=== PATIENT | female | born 1950 | race Caucasian/White ===

== ENCOUNTER 2024-06-09 21:06 | Inpatient (IN) | payer MEDICARE, SELFPAY ==
[2024-06-09] VITALS (8 sets, daily range): BP systolic 109–188; BP diastolic 70–129; BMI 28.5; BMI 28.1
[2024-06-09 13:02] LABS: % Basophils 0.3 % (0-2); % Eosinophils 2.6 % (0-6); % Monocytes 9.7 % (1.7-9.3); % Neutrophils 53.4 % (42.2-75.2); Absolute Eosinophils 0.1 10^3/uL (0-0.7); Absolute Lymphocytes 1.3 10^3/uL (1.2-3.4); Absolute Monocytes 0.4 10^3/uL (0.1-0.6); Hematocrit 41.9 % (37.0-47.0); Hemoglobin 14.2 g/dL (12.0-16.0); Mean Corp Hgb Conc. 33.9 g/dL (33.0-37.0); Mean Corpuscular Hgb 30.3 pg (27.0-31.0); Mean Corpuscular Volume 89.5 fL (81.0-99.0); Mean Platelet Volume 10.5 fL (7.4-10.4); Nucleated Red Blood Cells % 0 %; Platelet Count 148 10^3/uL (130-400); Red Blood Cell Count 4.68 10^6/uL (4.20-5.40); Red Cell Dist. Width 14.9 % (11.5-14.5); White Blood Cell Count 3.8 10^3/uL (4.8-10.8)
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
[2024-06-09 13:31] LABS: Blood Urea Nitrogen 17 mg/dl (7-17); Calcium 9.5 mg/dl (8.4-10.2); Carbon Dioxide 25 mmol/L (22-30); Chloride 104 mmol/L (98-107); Estimated Creatinine Clearance 51 ml/min; Glucose 105 mg/dl (70-99); Potassium 4.1 mmol/L (3.5-5.1); Sodium 139 mmol/L (135-145); eGFR 58.39
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
[2024-06-09 13:54] LABS: Albumin 3.8 g/dl (3.5-5.0); Alkaline Phosphatase 87 U/L (38-126); Total Protein 7.3 g/dl (6.3-8.2)
[2024-06-09 13:55] LABS: ALT (SGPT) 22 U/L (0-35); AST (SGOT) 66 U/L (14-36); Total Bilirubin 2.4 mg/dl (0.2-1.3)
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
[2024-06-09 20:06] LABS: Urine Albumin Trace (Neg - Trace); Urine Bilirubin Negative (Negative); Urine Character Very Cloudy (Clear); Urine Color Yellow; Urine Glucose Negative (Negative); Urine Ketone Negative (Negative); Urine Leukocyte 2+ (Negative); Urine Nitrite Positive (Negative); Urine Occult Blood 1+ (Negative); Urine Urobilinogen Negative (Neg - 1+); Urine pH 6.5 (5.0-9.0)
[2024-06-09 20:13] LABS: Amphetamines Negative (Negative); Barbiturates Negative (Negative); Benzodiazepines Negative (Negative); Buprenorphine Negative (Negative); Cocaine Negative (Negative); Marijuana Negative (Negative); Methadone Negative (Negative); Methamphetamines Negative (Negative); Opiates Negative (Negative); Phencyclidine Negative (Negative); Tricyclic Antidepressants Negative (Negative); Urine Bacteria Many (Negative); Urine White Cell >100 /HPF (0-5)
[2024-06-09 20:19] LABS: Magnesium 1.8 mg/dl (1.6-2.3)
[2024-06-09 20:49] LABS: TSH Reflex To Free T4 1.56 uIU/ml (0.47-4.68)
--- NOTE | 2024-06-09 21:00 | PTCARENOTE ---
Patient arrived from the ED via stretcher. Patient ambulated into the room with assistance. AAOx1, pleasantly confused. VSS, BP elevated. No c/o pain. Bed alarm in place, fall risk bracelet applied. Patient oriented to the room, call buitrago is within
reach.
[2024-06-09] MEDS: COZAAR 50 MG PO (21:25)
[2024-06-09] MEDS: FLUSH (NSS) 1 FLUSH IV (21:26)
[2024-06-10 06:00] VITALS: BMI 27.8
[2024-06-10 06:14] LABS: % Basophils 0.4 % (0-2); % Eosinophils 1.8 % (0-6); % Immature Granulocytes 0.2 % (0-0.5); % Lymphocytes 32.5 % (20.5-51.1); % Monocytes 10.9 % (1.7-9.3); % Neutrophils 54.2 % (42.2-75.2); Absolute Eosinophils 0.1 10^3/uL (0-0.7); Absolute Lymphocytes 1.5 10^3/uL (1.2-3.4); Absolute Monocytes 0.5 10^3/uL (0.1-0.6); Absolute Neutrophils 2.4 10^3/uL (1.4-6.5); Hematocrit 40.2 % (37.0-47.0); Hemoglobin 13.7 g/dL (12.0-16.0); Mean Corp Hgb Conc. 34.1 g/dL (33.0-37.0); Mean Corpuscular Hgb 30.1 pg (27.0-31.0); Mean Corpuscular Volume 88.4 fL (81.0-99.0); Nucleated Red Blood Cells % 0 %; Platelet Count 142 10^3/uL (130-400); Red Blood Cell Count 4.55 10^6/uL (4.20-5.40); Red Cell Dist. Width 14.8 % (11.5-14.5); White Blood Cell Count 4.5 10^3/uL (4.8-10.8)
[2024-06-10 06:47] LABS: ALT (SGPT) 22 U/L (0-35); AST (SGOT) 58 U/L (14-36); Albumin 3.5 g/dl (3.5-5.0); Alkaline Phosphatase 74 U/L (38-126); Blood Urea Nitrogen 17 mg/dl (7-17); Calcium 9.1 mg/dl (8.4-10.2); Carbon Dioxide 24 mmol/L (22-30); Chloride 107 mmol/L (98-107); Estimated Creatinine Clearance 56 ml/min; Glucose 91 mg/dl (70-99); HDL Cholesterol 61 mg/dl; LDL Cholesterol, Calculated 134 mg/dl; Potassium 4.1 mmol/L (3.5-5.1); Sodium 142 mmol/L (135-145); Total Bilirubin 2.3 mg/dl (0.2-1.3); Total Cholesterol 207 mg/dl (50-199); Total Protein 6.7 g/dl (6.3-8.2); Triglyceride 64 mg/dl (10-149); Very Low Density Lipoprotein 12 mg/dl (0-30); eGFR > 60.00
[2024-06-10 07:12] VITALS: BP 164/84
[2024-06-10] MEDS: HEPARIN 5000 UNITS SC (08:45)
--- NOTE | 2024-06-10 08:47 | CS.PSYCHR ---
Consult Summary - Psychiatry
-
74 yo female with history of ongoing confusion admitted on 06/09/2024 after an unwitnessed fall. Psychiatry consulted to determine if underlying psychiatric condition could be contributing to confusion/hallucinations. On evaluation, patient denies a
mental health history. I spoke to her Flakito who confirms this. He reports very high functioning baseline until about 2 years ago. He states that over the past two years, patient has become increasingly confused. The first deficits he
noticed were difficulty with math and reading comprehension. Over the past couple weeks he state she thinks the TV is talking to her directly and she responds, She has been seeing people in the room that she states are laughing at her/calling her
names. She has had episodes of significant agitation. He states he feels guilty for not getting her evaluation sooner. He is struggling and does not think he is able to continue caring for her. He brings up possibility of alf placement.
MSE- good eye contact. calm. pleasant but confused. knows her name and that she's in a hospital but cannot tell me which one. She reports 'good' mood. thought process is disorganized. She denies SI/HI. She denies hallucinations or ideas of reference
at this time. Poor insight.
TSH WNL; UDS negative; UA suspicious of infection vs contamination; B12 folate pending
06/09 CT head- progressive volume loss compared with previous exam notably in temporal lobes; small vessel ischemic disease
Past psych- denies
PMH- HTN, HLD, chronic ambulatory dysfunction, ongoing confusion undiagnosed, TMJ, arthralgia, allergic rhinitis, hair loss
Social- Lives with at a motel since the house they were renting sold. They went to high school together and have been for 24 years. He states her IQ was in the 150s. She graduated with a political science degree from [employer] and
wanted to go to law school but never did. She is a very good artist.
D&A- denies
Family history- denies family mental health history
A/P- 74 yo female with worsening dementia over two years. Psychotic symptoms could be related to progression of dementia or an acute delirium on top of preexisting dementia. This is very unlikely a primary psychiatric condition. Defer to primary
team regarding UA results and treating empirically/repeating UA etc. Will order seroquel 12.5mg daily PRN agitation/hallucinations for now and check in tomorrow to see how patient did overnight.
[2024-06-10] MEDS: COZAAR 50 MG PO (08:56)
[2024-06-10 09:24] VITALS: BP 144/79; PULSE 81; O2SAT 96
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
[2024-06-10] MEDS: SEROQUEL 12.5 MG PO (10:37)
[2024-06-10 14:42] VITALS: BP 97/57; PULSE 82; O2SAT 99
[2024-06-10 15:58] VITALS: BP 123/71
[2024-06-10] MEDS: LOVENOX 40 MG SC (18:17)
[2024-06-10] MEDS: BACTRIM DS 800 MG/160 MG PO (19:32)
[2024-06-10] MEDS: BACTRIM DS 800 MG/160 MG 1 TABLET PO (19:41)
[2024-06-10 23:42] VITALS: BP 161/80
[2024-06-11 06:00] VITALS: BMI 28.0
[2024-06-11 07:10] VITALS: BP 169/83
[2024-06-11] MEDS: COZAAR 50 MG PO (07:43)
[2024-06-11] MEDS: BACTRIM DS 800 MG/160 MG 1 TABLET PO (07:43)
[2024-06-11 10:53] LABS: % Basophils 0.2 % (0-2); % Eosinophils 1.1 % (0-6); % Immature Granulocytes 0.2 % (0-0.5); % Lymphocytes 29.2 % (20.5-51.1); % Monocytes 9.9 % (1.7-9.3); % Neutrophils 59.4 % (42.2-75.2); Absolute Eosinophils 0.1 10^3/uL (0-0.7); Absolute Lymphocytes 1.4 10^3/uL (1.2-3.4); Absolute Monocytes 0.5 10^3/uL (0.1-0.6); Absolute Neutrophils 2.8 10^3/uL (1.4-6.5); Hematocrit 41.8 % (37.0-47.0); Hemoglobin 14.5 g/dL (12.0-16.0); Mean Corp Hgb Conc. 34.7 g/dL (33.0-37.0); Mean Corpuscular Hgb 30.8 pg (27.0-31.0); Mean Corpuscular Volume 88.7 fL (81.0-99.0); Mean Platelet Volume 10.8 fL (7.4-10.4); Nucleated Red Blood Cells % 0 %; Platelet Count 134 10^3/uL (130-400); Red Blood Cell Count 4.71 10^6/uL (4.20-5.40); Red Cell Dist. Width 14.9 % (11.5-14.5); White Blood Cell Count 4.7 10^3/uL (4.8-10.8)
[2024-06-11 10:56] LABS: ALT (SGPT) 21 U/L (0-35); AST (SGOT) 53 U/L (14-36); Albumin 3.7 g/dl (3.5-5.0); Alkaline Phosphatase 80 U/L (38-126); Blood Urea Nitrogen 20 mg/dl (7-17); Calcium 9.1 mg/dl (8.4-10.2); Carbon Dioxide 24 mmol/L (22-30); Chloride 108 mmol/L (98-107); Direct Bilirubin 0.7 mg/dl (0.0-0.4); Estimated Creatinine Clearance 30 ml/min; Glucose 126 mg/dl (70-99); Potassium 3.8 mmol/L (3.5-5.1); Sodium 143 mmol/L (135-145); Total Bilirubin 2.1 mg/dl (0.2-1.3); Total Protein 7.1 g/dl (6.3-8.2); eGFR 30.89
[2024-06-11 11:46] LABS: Hepatitis C Antibody Negative (Negative)
[2024-06-11 12:01] LABS: Folate 5.5 ng/ml (2.76-20); Vitamin B12 290 pg/ml (239-931)
--- NOTE | 2024-06-11 15:13 | W.PN.UPDATE ---
Update Note
Progress Note Update
Psychiatry follow up for worsening confusion with hallucinations. Patient is somnolent but arousable. She presents pleasantly confused on my exam (very similar to yesterday). Per nursing she received Seroquel PRN yesterday but none today. She has
been having hallucinations of dogs in the room. antibiotics were started for possible UTI, culture pending.
A/P- 74 yo female with worsening dementia over two years. Psychotic symptoms could be related to progression of dementia or an acute delirium secondary to UTI on top of preexisting dementia. This is very unlikely a primary psychiatric condition.
Will continue seroquel 12.5mg daily PRN agitation/hallucinations for now and monitor.
[2024-06-11 15:33] VITALS: BP 157/80
--- NOTE | 2024-06-11 16:51 | CM ---
Spoke with pt in room .
She is confused.
PT Ot indicate SNF .
Spoke with pt about SNF She declined .
Spoke with [facility] he suggested [facility].
said he will try to convince her to do SNF.
He is staying in a [facility] [address] at this time at [address] [place]
[place] [facility] involved .
PLAN To SNF when located and medical ready
[2024-06-11] MEDS: SEROQUEL 12.5 MG PO ×2 (17:06→20:07)
[2024-06-11] MEDS: LOVENOX 40 MG SC (17:11)
--- NOTE | 2024-06-11 17:12 | PTCARENOTE ---
Patient reports she sees '45 dogs in her room' and they are all staring at her. Seroquel given for hallucinations. See MAR.
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
[2024-06-11] MEDS: CIPRO 500 MG PO (20:07)
[2024-06-11] MEDS: NSS 1000 IV (23:31)
[2024-06-11 23:58] VITALS: BP 127/63
[2024-06-12 06:00] VITALS: BMI 27.8
[2024-06-12 06:52] LABS: % Basophils 0.6 % (0-2); % Immature Granulocytes 0.3 % (0-0.5); % Lymphocytes 39.9 % (20.5-51.1); % Monocytes 10.8 % (1.7-9.3); % Neutrophils 46.4 % (42.2-75.2); Absolute Eosinophils 0.1 10^3/uL (0-0.7); Absolute Lymphocytes 1.4 10^3/uL (1.2-3.4); Absolute Monocytes 0.4 10^3/uL (0.1-0.6); Absolute Neutrophils 1.6 10^3/uL (1.4-6.5); Hematocrit 40.8 % (37.0-47.0); Hemoglobin 13.7 g/dL (12.0-16.0); Mean Corp Hgb Conc. 33.6 g/dL (33.0-37.0); Mean Corpuscular Hgb 30.6 pg (27.0-31.0); Mean Corpuscular Volume 91.3 fL (81.0-99.0); Mean Platelet Volume 11.3 fL (7.4-10.4); Nucleated Red Blood Cells % 0 %; Platelet Count 127 10^3/uL (130-400); Red Blood Cell Count 4.47 10^6/uL (4.20-5.40); Red Cell Dist. Width 14.9 % (11.5-14.5); White Blood Cell Count 3.4 10^3/uL (4.8-10.8)
[2024-06-12 07:05] LABS: ALT (SGPT) 19 U/L (0-35); AST (SGOT) 49 U/L (14-36); Albumin 3.5 g/dl (3.5-5.0); Alkaline Phosphatase 80 U/L (38-126); Blood Urea Nitrogen 18 mg/dl (7-17); Calcium 8.8 mg/dl (8.4-10.2); Carbon Dioxide 23 mmol/L (22-30); Chloride 107 mmol/L (98-107); Estimated Creatinine Clearance 32 ml/min; Glucose 92 mg/dl (70-99); Potassium 4.1 mmol/L (3.5-5.1); Sodium 141 mmol/L (135-145); Total Bilirubin 1.8 mg/dl (0.2-1.3); Total Protein 6.9 g/dl (6.3-8.2); eGFR 33.22
[2024-06-12 07:15] VITALS: BP 148/85
[2024-06-12] MEDS: CIPRO 500 MG PO (09:31)
[2024-06-12] MEDS: COZAAR 50 MG PO (09:32)
[2024-06-12] MEDS: SEROQUEL 12.5 MG PO ×2 (09:32→20:09)
[2024-06-12] MEDS: HEPARIN 5000 UNITS SC ×2 (09:32→20:09)
--- NOTE | 2024-06-12 11:27 | W.PN.UPDATE ---
Update Note
Progress Note Update
patient seen chart reviewed. noted patient w hx cognitive decline. she has hx of auditory and verbal hallucinations. she reportedly talks to t he TV . she did admit to me she sees and hears things seemingly of a paranoid nature. she was clearly
confused and struggled to put her thoughts into words. she is currently taking seroquel 12. 5 mg bid. no acute changes in cat scan to explain mental status change. received message to call patient's mr tirado which i did. left message.
would suggest that risperdal might be better for control of psychosis. at doses of o.25 to 0.5 mg daily it would likely have less side effects. current dose of seroquel does not seem to be resolving psychosis and increasing it would likely cause
more sedation than risperdal .patient does not seem pleasantly confused to me...rather she seems somewhat troubled. hopefully will reach and discuss with him.
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
[2024-06-12] MEDS: NSS 1000 IV (14:28)
[2024-06-12 15:10] VITALS: BP 149/78
[2024-06-12] MEDS: SENOKOT-S 1 TABLET PO (17:06)
[2024-06-12] MEDS: MIRALAX 17 GRAMS PO (17:06)
[2024-06-12 23:04] VITALS: BP 146/84
[2024-06-13 06:00] VITALS: BMI 28.3
[2024-06-13] MEDS: NSS 1000 IV (06:29)
[2024-06-13 07:15] VITALS: BP 168/73
[2024-06-13] MEDS: COZAAR 50 MG PO (09:09)
[2024-06-13] MEDS: CIPRO 500 MG PO (09:09)
[2024-06-13] MEDS: HEPARIN 5000 UNITS SC ×2 (09:09→20:50)
[2024-06-13] MEDS: SEROQUEL 12.5 MG PO (09:10)
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
--- NOTE | 2024-06-13 11:36 | CM ---
Addendum entered by Cheryl Ramsey 06/13/24 11:59:
Pt accepted for transfer to [facility]; Dr. Barrett notified of same. Psych medications being changed from seroquel to risperdal, so Dr. Barrett would like to monitor pt with possible discharge tomorrow pending improvement.
Original Note:
Aminata has been accepted for admission to [facility] in [place]. VM left for Amparo [phone] who is covering admissions today.
TT to Dr. Barrett to make him aware of bed availability.
CM to follow to coordinate discharge to SNF when medically stable.
Await response from Amparo at [facility] to coordinate transfer.
--- NOTE | 2024-06-13 11:43 | W.PN.UPDATE ---
Addendum entered and electronically signed by Heather Zapata MD 06/13/24 12:00:
have dc'ed the seroquel in favor of risperdal which could be more helpful with psychosis without the level of sedation which might be seen with seroquel
Original Note:
Update Note
Progress Note Update
patient seen chart reviewed. spoke with patient for about half an hour. she was very confused and hard to follow but was today fairly pleasant although clearly has a lot of anxieties secondary to paranoid thoughts and feelings. i did speak with
who describes patient has been experiencing visual and auditory hallucinations for some time. she has not had an eye exam in about 20 years and she has been complaining of issues with her vision. will clean her glasses and she will
say it's better. told me he has known mrs carbone since they were [age] years old and 'i love her to '. mr carbone told me they have been living in a hotel room for some time and he looks at the bed and misses her greatly. i explained
to him the rationale of switching from seroquel to risperdal for control of paranoia. explained the black box warning of inc in cardio vascular events with dementia. mr menezes is conflicted about whether he wants his to be in a intermodal dispatcher
situation for dementia ultimately. he does acknowledge caring for her has been very difficult and the hotel situation has not made that any easier. would start with risperdal o.25 po bid. patient expressed worry about not eating which i
relayed to patient's nurse .
[2024-06-13 15:15] VITALS: BP 145/67
[2024-06-13] MEDS: RISPERDAL M-TAB (ORALLY DISINTEGRATING) 0.25 MG PO (20:48)
[2024-06-13 23:10] VITALS: BP 167/98
[2024-06-14] MEDS: TYLENOL 650 MG PO (00:25)
[2024-06-14 01:28] VITALS: BP 167/93
[2024-06-14 04:00] VITALS: BP 178/95
--- NOTE | 2024-06-14 05:28 | PTCARENOTE ---
Pt aaoxself only. Pt on medsitter & at nurses station over night as pt wants to go search for things & keeps pulling on her lines & catheter, all comfort measures were continued& pt was reoriented to place,time,emotional support provided as
needed.Po intake was encouraged. Pt BP was high 167/93,pt keeps moving & squeezing her arm constantly whenever trying to get BP,anxious ,multiple attempts made,pt didn't sleep all night.HEEL SEAT FITTER continuous process coffee roaster made aware of pt BP range & pt keeps moving her
arms. No new orders at this time.Plan of care continued on pt.
[2024-06-14] MEDS: RISPERDAL M-TAB (ORALLY DISINTEGRATING) 0.25 MG PO (08:03)
[2024-06-14] MEDS: CIPRO 500 MG PO (08:07)
[2024-06-14 08:08] VITALS: BP 162/101
[2024-06-14] MEDS: COZAAR 50 MG PO (08:08)
[2024-06-14] MEDS: HEPARIN 5000 UNITS SC (08:11)
--- NOTE | 2024-06-14 10:05 | CM ---
Psychiatry saw pt and switch pt to Risperdal
PT OT indicate SNF.
Spoke with Olman he suggested [facility] who accepted pt.
said he will try to convince her to do SNF.
Pt will need ambulance. Medical nec form.
Couple staying in a [address] at this time at [address] [place].[employer] involved .
PLAN To [facility] when medical ready
[2024-06-14 10:18] LABS: Hematocrit 42.8 % (37.0-47.0); Hemoglobin 14.4 g/dL (12.0-16.0); Mean Corp Hgb Conc. 33.6 g/dL (33.0-37.0); Mean Corpuscular Hgb 30.6 pg (27.0-31.0); Mean Corpuscular Volume 90.9 fL (81.0-99.0); Mean Platelet Volume 10.8 fL (7.4-10.4); Platelet Count 141 10^3/uL (130-400); Red Blood Cell Count 4.71 10^6/uL (4.20-5.40); Red Cell Dist. Width 14.9 % (11.5-14.5); White Blood Cell Count 4.1 10^3/uL (4.8-10.8)
--- NOTE | 2024-06-14 10:49 | PTCARENOTE ---
Patient uncooperative and confused. Patient is sitting in ulrich with med sitter and staff is with patient at all times as she frequently attempts to get out of chair. Resident made aware. Unable to get orthostatic vitals.
[2024-06-14 11:40] LABS: Blood Urea Nitrogen 13 mg/dl (7-17); Calcium 9.4 mg/dl (8.4-10.2); Carbon Dioxide 22 mmol/L (22-30); Chloride 107 mmol/L (98-107); Estimated Creatinine Clearance 46 ml/min; Glucose 94 mg/dl (70-99); Potassium 4.1 mmol/L (3.5-5.1); Sodium 144 mmol/L (135-145); eGFR 52.08
[2024-06-14] MEDS: SEROQUEL 25 MG PO (15:40)
--- NOTE | 2024-06-14 16:02 | PTCARENOTE ---
Patient a fall risk and uncooperative. Med sitter in place. 1:1 ordered. [facility] Nursing Director made aware. Patient sitting in half and nursing staff sitting with patient.
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
--- NOTE | 2024-06-14 17:24 | PTCARENOTE ---
No gricelda chair used this shift as floors is broken. medical billing supervisor and ediscovery project manager made aware.
--- NOTE | 2024-06-14 17:26 | PTCARENOTE ---
Patient refused 3pm Vital signs.
[2024-06-14] MEDS: HEPARIN SC (19:30)
[2024-06-14] MEDS: SEROQUEL PO (23:00)
[2024-06-14 23:27] VITALS: BP 165/98
--- NOTE | 2024-06-15 04:01 | PTCARENOTE ---
HS dose of seroquel not given as pt was asleep. 1:1 maintained as ordered.
--- NOTE | 2024-06-15 06:17 | PTCARENOTE ---
Pt taken to MRI but became combative and were unable to do test. Jordan d/c'd with much difficulty as pt again became combative. Pt has been sleeping thruout the night. When awake this am to attempt MRI and d/c jordan pt was confused and unable to
follow commands. Pt unable to answer even simple questions-just kept repeating 'why'.
[2024-06-15 08:00] VITALS: BP 125/78
[2024-06-15] MEDS: COZAAR 50 MG PO (10:19)
[2024-06-15] MEDS: HEPARIN 5000 UNITS SC (10:19)
[2024-06-15] MEDS: SEROQUEL PO (10:26)
--- NOTE | 2024-06-15 10:39 | W.PN.UPDATE ---
Update Note
Progress Note Update
Patient seen with 1:1 at bedside, chart reviewed, discussed with staff. Ms. Briceno is sleepy this AM however, did not receive last 2 doses of Seroquel. She would not eat much this AM. She was to have an MRI yesterday but became combative and was not
able to have completed. Staff reports when she is bothered she becomes agitated but when left alone she is pleasantly confused. Patient was reportedly more agitated when switched to risperidone and therefore Seroquel was restarted.
Impression/recommendations: dementia, worsening with psychotic symptoms that could be related to progression of dementia vs acute delirium/TME related to medical complications - for now, continue with Seroquel and hold for sedation.
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
[2024-06-15 12:28] LABS: Hemoglobin 14.2 g/dL (12.0-16.0); Mean Corp Hgb Conc. 34.6 g/dL (33.0-37.0); Mean Corpuscular Hgb 30.6 pg (27.0-31.0); Mean Corpuscular Volume 88.4 fL (81.0-99.0); Platelet Count 111 10^3/uL (130-400); Red Blood Cell Count 4.64 10^6/uL (4.20-5.40); Red Cell Dist. Width 15.1 % (11.5-14.5)
[2024-06-15] MEDS: SEROQUEL 25 MG PO (14:55)
[2024-06-15 15:56] VITALS: BP 141/74
--- NOTE | 2024-06-15 16:52 | CM ---
Pt remained on medsitter . Pt will need to be off medsitter x 24 hr to go to SNF.
PT OT indicate SNF.
Spoke with Ale from [facility] who accepted pt.
Pt will need ambulance. Medical nec form.
[facility]
report [phone] ask for nsy painter supervisor
fax [phone]
PLAN To [facility] when medical ready
[2024-06-15] MEDS: HEPARIN SC (21:52)
[2024-06-16] MEDS: HEPARIN SC (08:40)
[2024-06-16] MEDS: COZAAR 50 MG PO (08:43)
[2024-06-16] MEDS: SEROQUEL 25 MG PO ×2 (08:44→20:30)
[2024-06-16 08:48] LABS: Hematocrit 44.3 % (37.0-47.0); Hemoglobin 14.6 g/dL (12.0-16.0); Mean Corpuscular Hgb 30.2 pg (27.0-31.0); Mean Corpuscular Volume 91.7 fL (81.0-99.0); Mean Platelet Volume 10.8 fL (7.4-10.4); Platelet Count 132 10^3/uL (130-400); Red Blood Cell Count 4.83 10^6/uL (4.20-5.40); Red Cell Dist. Width 15.1 % (11.5-14.5); White Blood Cell Count 3.9 10^3/uL (4.8-10.8)
[2024-06-16 09:32] LABS: ALT (SGPT) 25 U/L (0-35); AST (SGOT) 78 U/L (14-36); Albumin 3.8 g/dl (3.5-5.0); Alkaline Phosphatase 78 U/L (38-126); Blood Urea Nitrogen 19 mg/dl (7-17); Calcium 9.3 mg/dl (8.4-10.2); Carbon Dioxide 23 mmol/L (22-30); Chloride 106 mmol/L (98-107); Estimated Creatinine Clearance 51 ml/min; Glucose 83 mg/dl (70-99); Sodium 144 mmol/L (135-145); Total Bilirubin 2.2 mg/dl (0.2-1.3); Total Protein 7.1 g/dl (6.3-8.2); eGFR 58.39
--- NOTE | 2024-06-16 10:16 | CM ---
Patient seen at bedside
Pt remained on medsitter . Pt will need to be off medsitter x 24 hr to go to SNF.
for ree Christensen for [facility]
PLAN: SNF, pending bed availability
[facility]
report [phone] ask for nsy supervisor [employer]
fax [phone]
transportation forms on chart
--- NOTE | 2024-06-16 11:08 | W.PN.UPDATE ---
Update Note
Progress Note Update
patient seen chart reviewed. discussed with nursing. noted that risperdal dc'ed bc patient seemed worse. not clear to me that patient was worse bc of the risperdal but it is possible that it was not given enough time to work OR that the risperdal
dosage could have been increased. at this point it seems that she is on seroquel prn only and that the tid dosage has been dc'ed. the patient remains confused and i would say paranoid. she told me she was '' and no amount of discussion could
convince her otherwise. she also said some things which i would interpret as paranoid about her . i spoke to him at great length over the weekend and i did not have the impression at all that he was posing a risk to her. he did tell me that
the paranoia and delusions are not new but have been present for some time and only getting worse. despite the fact that she was saying disturbing material eg that she was , she was quite calmly sitting in bed. she has received one prn
yesterday and today of the seroquel. for now would continue as it. would still recommend that risperdal has a better chance of relieving psychosis without sedation than seroquel although sometimes longstanding delusions are very resisitant to rx
will follow
[2024-06-16 12:06] VITALS: BMI 28.3
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
--- NOTE | 2024-06-16 14:17 | PTOTSP ---
Reviewed chart and s/w RN, attempted to see pt for PT tx. Pt still on bed alarm and Medsitter. Pt was talking nonsense continuously and argumentative at times and refusing to walk or eat the lunch in front of her. Pt has been uncooperative for days.
PT will sign off at this time. Re-consult at a later date if pt calms and becomes cooperative to participate.
[2024-06-16 15:11] VITALS: BP 152/86
--- NOTE | 2024-06-16 16:38 | PTCARENOTE ---
Received patient this am AAox1. Pt confused. Pt was being uncooperative with am medications. Pt finally did take medications in applesauce. Pt medicated with Seroquel this am with some improvement in patient behavior. Later in day pt refused EKG.
Made aware. Pt tolerated diet. Appetite poor. Cont to assess patient status.
[2024-06-16] MEDS: HEPARIN 5000 UNITS SC (20:27)
[2024-06-16 23:10] VITALS: BP 157/74
--- NOTE | 2024-06-17 04:30 | PTCARENOTE ---
Pt. very confused and agitated at beginning of shift, but did take her meds without difficulty. Eventually became calmer and stopped attempting to get OOB. Medsitter off, bed alarm on.
[2024-06-17 05:36] VITALS: BMI 27.6
[2024-06-17 06:59] VITALS: BMI 27.5
[2024-06-17 07:25] VITALS: BP 160/75
[2024-06-17] MEDS: HEPARIN SC (08:19)
[2024-06-17] MEDS: COZAAR 50 MG PO (08:22)
[2024-06-17 08:49] LABS: Hematocrit 43.3 % (37.0-47.0); Hemoglobin 14.4 g/dL (12.0-16.0); Mean Corp Hgb Conc. 33.3 g/dL (33.0-37.0); Mean Corpuscular Hgb 30.4 pg (27.0-31.0); Mean Corpuscular Volume 91.5 fL (81.0-99.0); Mean Platelet Volume 10.9 fL (7.4-10.4); Platelet Count 122 10^3/uL (130-400); Red Blood Cell Count 4.73 10^6/uL (4.20-5.40); Red Cell Dist. Width 14.9 % (11.5-14.5); White Blood Cell Count 3.2 10^3/uL (4.8-10.8)
[2024-06-17 09:29] LABS: Blood Urea Nitrogen 21 mg/dl (7-17); Calcium 9.1 mg/dl (8.4-10.2); Carbon Dioxide 25 mmol/L (22-30); Chloride 105 mmol/L (98-107); Estimated Creatinine Clearance 56 ml/min; Glucose 81 mg/dl (70-99); Sodium 141 mmol/L (135-145); eGFR > 60.00
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
--- NOTE | 2024-06-17 14:09 | CM ---
MD entered order for discharge .
Medsitter removed yesterday.
PT OT indicate SNF.
Spoke with Ale from [facility] who accepted pt.
Pt needs ambulance. Medical nec form completed.
Pt confused . She spoke with her . Explained to pt she was going to SNF.
Spoke with her he agreed with dc to SNF.
[facility]
report [phone] ask for [facility] accounts receivable supervisor
fax [phone]
PLAN To [facility]
--- NOTE | 2024-06-17 14:28 | W.PN.UPDATE ---
Update Note
Progress Note Update
patient seen chart reviewed. spoke with nursing. the patient was pleasant today. she does remain confused and is hard to follow in conversation. there remain rather paranoid overtones to a lot of what she says but she does not seem as upset by
them as she had earlier in this stay. she expressed that she misses her and wonders why she has not seen him since she has been here. he had told me he has a very hard time getting transportation to get her to see her. explained this again
to patient. she is going to snf later today. explained to her that the point of this is to help her get stronger p hysically and hopefully in the meantime her will get some help w housing and she will see him in the not too distant future.
she is not taking any deidre antipsychotic at this point
[2024-06-17 15:10] VITALS: BP 112/69
[2024-06-17 15:11] VITALS: BP 112/69
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
== END 2024-06-17 19:03 | DRG 689 ==
LOC: 4 EAST ACU 21:06
PROVIDERS: Clinical Nurse Specialist Family Health; Student in an Organized Health Care Education/Training Program; ADMITTING PHYSICIAN Internal Medicine; ATTENDING PHYSICIAN Hospitalist; CONSULT PHYSICIAN Psychiatry & Neurology Psychiatry; EMERGENCY PHYSICIAN Emergency Medicine; FAMILY PHYSICIAN Internal Medicine
DX: N39.0 Urinary tract infection, site not specified (principal); G92.8 Other toxic encephalopathy; F03.92 Unspecified dementia, unspecified severity, with psychotic disturbance; N17.9 Acute kidney failure, unspecified; F05 Delirium due to known physiological condition; G81.91 Hemiplegia, unspecified affecting right dominant side; B96.20 Unspecified Escherichia coli [E. coli] as the cause of diseases classified elsewhere; N18.31 Chronic kidney disease, stage 3a; I50.9 Heart failure, unspecified; I11.0 Hypertensive heart disease with heart failure; F03.90 Unspecified dementia, unspecified severity, without behavioral disturbance, psychotic disturbance, mood disturbance, and anxiety
CPT/HCPCS: 70450; 71046; 73610; 80048; 80053; 80061; 80306; 81003; 81015; 82248; 82607; 82746; 83735; 84443; 85025; 85027; 86803; 87077; 87086; 87186; 93005; 93306; 97116; 97129; 97162; 97167; 97530; 97535; 99285